=== PATIENT | male | born 1975 | race Caucasian/White ===

== ENCOUNTER 2017-07-31 06:20 | Day surgery (SDC) | payer OTHER ==
[2017-07-31] MEDS ORDERED: ceFAZolin 2 GM/50 ML 2 GM/50 ML BAG IV ONE (06:31)
[2017-07-31] MEDS ORDERED: LACTATED RINGERS 1,000 ML IV ONE ×2 (07:03→09:50)
[2017-07-31] MEDS ORDERED: LIDOCAINE 1% 50 ML MDV ONE (07:14)
[2017-07-31] MEDS ORDERED: BUPIVACAINE 0.5%-EPI 1:200000 PF 10 ML VIAL ONE (07:15)
[2017-07-31] MEDS ORDERED: BACITRACIN OINT TOP ONE ×2 (07:15)
[2017-07-31] MEDS ORDERED: BUPIVACAINE 0.5%-EPI 1:200000 PF 30 ML VIAL SUBQ ONE (08:09)
[2017-07-31] MEDS ORDERED: BACITRACIN ZINC OINT 15 GM TOP ONE (08:09)
[2017-07-31] MEDS ORDERED: LIDOCAINE 1% 50 ML MDV SUBQ ONE (08:09)
[2017-07-31] MEDS ORDERED: LIDOCAINE-MPF 2% 5 ML VIAL IM ONE (08:26)
[2017-07-31] MEDS ORDERED: fentaNYL 250 MCG/5 ML VIAL IVP ONE (08:26)
[2017-07-31] MEDS ORDERED: PROPOFOL 200 MG/20 ML VIAL IVP ONE (08:26)
[2017-07-31] MEDS ORDERED: ROCURONIUM 50 MG/5 ML VIAL IVP ONE (08:26)
[2017-07-31] MEDS ORDERED: ACETAMINOPHEN 1,000 MG/100 ML 100 ML IV ONE (09:29)
[2017-07-31] MEDS ORDERED: KETOROLAC 30 MG/ML VIAL ONE (10:24)
--- NOTE | 2017-07-31 10:51 | OPERATIVE REPORT ---
Operative Report - General Procedure Date: 07/31/17 Pre-Op Diagnosis: internal and external hemorrhoids Procedure Performed: hemorrhoidectomy Post Op Diagnosis: same - Procedure Note Primary Surgeon: viktoria Anesthesia Provider: Dr. Wheat Anesthesia Technique: General ET tube - Other Other Information/Narrative: Findings: After obtaining informed consent The patient was brought into the operating room and positioned on the operating table in the prone position taking noted pressure points. He was intubated by anesthesia prior to positioning. He was administered perioperative antibiotics he was then prepped and draped in the usual sterile fashion and a timeout was taken according to protocol.A rectal exam was performed which demonstrated a prolapsed and thrombosed external hemorrhoid in the right anterior position. He was also noted to have a large internal and external component in the left lateral position. The right anterior hemorrhoidal complex was grasped and clamped. A 3 -0 chromic suture was used to tie the base of the hemorrhoid and to run suture along the base of the proposed suture line beneath the clamp. The hemorrhoid was then excised using a 15 blade and electrocautery. There was a small amount of bleeding superficially at the skin incision which was controlled with electrocautery. Hemostasis appeared to be achieved. I then turned my attention to the left lateral hemorrhoidal complex. This was excised in a similar manner by grasping it and clamping with a large clamp was then suture ligated with a 3-0 running chromic and the hemorrhoidal complex excised with a 15 blade electrocautery. Upon further inspection of the rectum a certain degree of rectal prolapse was noted. Additionally he had residual internal hemorrhoidal tissue in the left lateral position. The hemorrhoidal banding device was used to place a single band around the internal hemorrhoid in this location. I again inspected the anal and rectal canal for bleeding and hemostasis was achieved. 40 cc of Marcaine lidocaine mixture was injected to perform an anal block. An additional 20 cc of lidocaine was placed subcutaneously. Bacitracin was placed on the incisions and the rectum was packed with Surgicel. Fluffs and mesh underwear were applied and the patient was taken to recovery room in stable condition. Specimens: None Estimated blood loss: 30 cc Consultations: None.
[2017-07-31] MEDS ORDERED: oxyCOD/ACETAMIN 5 MG/325 MG TABLET PO ONE (11:52)
[2017-07-31 12:33] VITALS: BP 123/84
--- NOTE | 2017-08-01 15:54 | HISTORY & PHYSICAL EXAMINATION ---
HPI - History of Present Illness HPI Comment/Other: Patient is here for hemorrhoidectomy for prolapsing painful hemorrhoids associated with bleeding. 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) (OKS43-U29.1) INTERNAL DERANGEMENT, RIGHT KNEE (ICD-717.9) (ELD99-L34.91) Acid Reflux Pacemaker Irregular Heartbeat Heartburn Acid Reflux Past Surgical History: Reviewed history from 10/08/2014 and no changes required: pacemaker 1999 for vasovagal syncope (based on tilt table induced cardioinhibitory response) Family History Summary: Reviewed history Last on 09/15/2016 and no changes required:06/28/2017 Father (rama.) - Has a Hx of Other Medical Problems - Entered On: 10/08/2014 General Comments - FH: Dad has lymphoma, alive age 66 in 2015 Mom healthy Risk Factors: Smoked Tobacco Use: Never smoker Smokeless Tobacco Use: Former Drug use: no Exercise: yes Problems were reviewed with the patient during this visit. Medications were reviewed with the patient during this visit. No known meds. Allergies were reviewed with the patient during this visit. Allergies: FLAGYL (Critical) Physical Exam General: normal appearance. Lungs: clear bilaterally to A & P Heart: regular rate and rhythm, S1, S2 without murmurs, rubs, gallops, or clicks Abdomen: bowel sounds positive; abdomen soft and non-tender without masses, organomegaly, or hernias noted Rectal: Rectal exam reveals a prolapsed hemorrhoid in theDigital rectal exam reveals internal hemorrhoids. Anoscopy reveals a component of both internal and external hemorrhoids circumferentially, however, the external component is Predominant. Pulses: pulses normal in all 4 extremities Extremities: no clubbing, cyanosis, edema, or deformity noted with normal full range of motion of all joints Impression & Recommendations: Problem # 1: Hemorrhoids Will proceed with hemorrhoidectomy PMH/PSH - Past Medical History Cardiovascular: positive: High cholesterol, Other Respiratory: positive: None Endocrine/Autoimmune: positive: None GI: positive: GERD, Hemorrhoids : positive: None Psych: positive: None Musculoskeletal: positive: None Derm: positive: None MRSA Hx?: No - Past Surgical History Cardiovascular: positive: Pacemaker Social & Family Hx - Social History ETOH Use: Beer Meds/Allgy - Home Medications Home Medications: Ambulatory Orders Medication Instructions Recorded Confirmed Multivitamin [Multivitamins] 1 each PO DAILY 07/31/17 07/31/17 - Allergies Allergies/Adverse Reactions: Allergies Allergy/AdvReac Type Severity Reaction Status Date / Time metronidazole [From Flagyl] Allergy Hives Verified 07/31/17 07:13
== END 2017-07-31 06:21 | disposition home or self-care (01) ==
LOC: SDS 06:20
PROVIDERS: ATTEND Surgery
PROC: 06BY0ZC Excision of Hemorrhoidal Plexus, Open Approach (ICD-10-PCS; principal; 2017-07-31 07:30)
DX: K64.5 Perianal venous thrombosis (principal); K64.8 Other hemorrhoids; E78.5 Hyperlipidemia, unspecified; Z95.0 Presence of cardiac pacemaker; Z87.891 Personal history of nicotine dependence
CPT/HCPCS: 46260; A9270; J0131; J0690; J3010; J7120

== ENCOUNTER 2017-09-13 08:02 | Outpatient (CLI) | payer OTHER ==
[2017-09-13 13:58] LABS: ALBUMIN 4.4 g/dL (3.2-5.5); ALBUMIN/GLOBULIN RATIO 1.5 (1.0-2.2); ALKALINE PHOSPHATASE 87 IU/L (42-121); ALT ALANINE AMINOTRANSFERASE 23 IU/L (10-60); AST ASPARTATE AMINOTRANSFERASE 23 IU/L (10-42); BILIRUBIN,TOTAL 0.5 mg/dL (0.2-1.0); BUN - BLOOD UREA NITROGEN 20 mg/dL (6-20); CALCIUM 8.7 mg/dL (8.5-10.3); CARBON DIOXIDE - CO2 24 mmol/L (21-32); CHLORIDE 106 mmol/L (101-111); CHOL/HDL RATIO 4.2 (<5.0); CHOLESTEROL 201 mg/dL; GFR - MDRD 81 (>89); GLUCOSE 117 mg/dL (70-100); HDL CHOLESTEROL 48 mg/dL; LDL CHOLESTEROL,CALCULATED 125 mg/dL; LDL/HDL RATIO 2.6 (<3.6); SODIUM 137 mmol/L (135-145); TOTAL PROTEIN 7.3 g/dL (6.7-8.2); VLDL CHOLESTEROL 28 mg/dL
== END 2017-09-13 08:03 | disposition home or self-care (01) ==
LOC: LAB.WCP 08:02
PROVIDERS: ATTEND Family Medicine
DX: E78.5 Hyperlipidemia, unspecified (principal); E66.9 Obesity, unspecified; R73.01 Impaired fasting glucose; R68.82 Decreased libido
CPT/HCPCS: 36415; 80053; 80061; 81599; 83721; 84402; 84403; 84443

== ENCOUNTER 2018-01-23 09:01 | Emergency (ER) | payer OTHER ==
[2018-01-23 09:24] LABS: BASOPHILS % (AUTO) 0.6 %; EOSINOPHILS # (AUTO) 0.2 10^3/uL (0.0-0.7); EOSINOPHILS % (AUTO) 3.2 %; HGB - HEMOGLOBIN 15.3 g/dL (14.0-18.0); LYMPHOCYTES # (AUTO) 1.5 10^3/uL (1.5-3.5); LYMPHOCYTES % (AUTO) 28.2 %; MEAN CORPUSCULAR HGB CONC 34.1 g/dL (32.0-36.0); MEAN PLATELET VOLUME 7.6 fL (7.4-11.4); MONOCYTES # (AUTO) 0.6 10^3/uL (0.0-1.0); MONOCYTES % (AUTO) 10.6 %; NEUTROPHILS # (AUTO) 3.1 10^3/uL (1.5-6.6); NEUTROPHILS % (AUTO) 57.4 %; PLT - PLATELET COUNT 186 10^3/uL (130-450); RED BLOOD COUNT 4.92 10^6/uL (4.70-6.10); RED CELL DISTRIBUTION WIDTH 12.7 % (12.0-15.0); WHITE BLOOD COUNT 5.4 x10^3/uL (4.8-10.8)
[2018-01-23 09:34] LABS: ALBUMIN 4.7 g/dL (3.2-5.5); ALBUMIN/GLOBULIN RATIO 1.6 (1.0-2.2); BILIRUBIN,TOTAL 0.9 mg/dL (0.2-1.0); CALCIUM 8.9 mg/dL (8.5-10.3); TOTAL PROTEIN 7.7 g/dL (6.7-8.2)
--- NOTE | 2018-01-23 10:00 | ED Physician Documentation ---
PD HPI MHE - History obtained from History obtained from: Patient - History of Present Illness Primary symptom: Other (has had left lateral chest pleuritic pain with deep breathing for a week, undulating severity. No noted trauma, nor cough. No dyspnea per se. Is not worse with exertion except with regard to breathing deeper.) Timing - onset: How many weeks ago (1) Contributing factors: Other (pain is not constant, worse some days.) Similar symptoms before: Has not had sx before Recently seen: No: Clinic (he tried to call his PMD for appt and they told him to come to the ER.) Review of Systems Constitutional: denies: Fever Nose: denies: Rhinorrhea / runny nose, Congestion Throat: denies: Sore throat Cardiac: reports: Chest pain / pressure. denies: Palpitations, Pedal edema, Calf pain Respiratory: denies: Dyspnea, Cough, Wheezing GI: denies: Abdominal Pain, Nausea, Vomiting Skin: denies: Rash, Lesions Neurologic: denies: Focal weakness, Numbness, Near syncope PD PAST MEDICAL HISTORY - Past Medical History Past Medical History: Yes Cardiovascular: High cholesterol, Other Respiratory: None Endocrine/Autoimmune: None GI: GERD, Hemorrhoids : None Psych: None Musculoskeletal: None Derm: None - Past Surgical History Cardiovascular: Pacemaker - Present Medications Home Medications: Ambulatory Orders Medication Instructions Recorded Confirmed Multivitamin [Multivitamins] 1 each PO DAILY 07/31/17 07/31/17 - Allergies Allergies/Adverse Reactions: Allergies Allergy/AdvReac Type Severity Reaction Status Date / Time metronidazole [From Flagyl] Allergy Hives Verified 01/23/18 09:11 - Social History Does the pt smoke?: No Smoking Status: Never smoker PD ED PE NORMAL - Vitals Vital signs reviewed: Yes - General General: Alert and oriented X 3, No acute distress, Well developed/nourished - HEENT HEENT: Moist mucous membranes, Pharynx benign - Neck Neck: Supple, no meningeal sign, No adenopathy - Cardiac Cardiac: RRR, No murmur - Respiratory Respiratory: Clear bilaterally, Other (no chestwall tenderness) - Abdomen Abdomen: Normal bowel sounds, Soft, Non tender, Non distended - Derm Derm: Normal color, Warm and dry, No rash - Extremities Extremities: No tenderness to palpate, Normal ROM s pain, No edema, No calf tenderness / cord - Neuro Neuro: Alert and oriented X 3, No motor deficit, Normal speech Results - Vitals Vitals: Vital Signs - 24 hr 01/23/18 01/23/18 01/23/18 09:05 09:19 10:24 Temperature 36.4 C L Heart Rate 56 L 57 L Respiratory 16 12 Rate Blood Pressure 142/94 H 136/94 H O2 Saturation 99 99 Oxygen O2 Source Room air - EKG (time done) on arrival Rhythm: NSR [place]: Normal Intervals: Normal CO QRS: Normal Ischemia: Normal ST segments. No: ST elevation c/w ischemia, ST depression - Labs Labs: Laboratory Tests 01/23/18 01/23/18 01/23/18 09:13 09:13 09:13 WBC 5.4 RBC 4.92 Hgb 15.3 Hct 44.7 MCV 91.0 MCH 31.0 MCHC 34.1 RDW 12.7 Plt Count 186 MPV 7.6 Neut # (Auto) 3.1 Lymph # (Auto) 1.5 [place] # (Auto) 0.6 Eos # (Auto) 0.2 Baso # (Auto) 0.0 Absolute Nucleated RBC 0.00 Nucleated RBC % 0.1 Sodium 137 Potassium 4.3 Chloride 102 Carbon Dioxide 27 Anion Gap 8.0 BUN 12 Creatinine 1.0 Estimated GFR (MDRD) 81 L Glucose 117 H Calcium 8.9 Total Bilirubin 0.9 AST 25 ALT 22 Alkaline Phosphatase 82 Troponin I < 0.04 Total Protein 7.7 Albumin 4.7 Globulin 3.0 Albumin/Globulin Ratio 1.6 Lipase 30 - Rads (name of study) chest xray Radiology: Prelim report reviewed, EMP read contemporaneously (normal) PD MEDICAL DECISION MAKING - ED course Complexity details: reviewed results (normal ECG, CXR, and Troponin. low risk symptoms and nonexertional symptoms for a week, so single troponin is good. ), considered differential (referred by PCP office even though sounded like pleuritic chest pain for a week. ), d/w patient - Sepsis Event Vital Signs: Vital Signs - 24 hr 01/23/18 01/23/18 01/23/18 09:05 09:19 10:24 Temperature 36.4 C L Heart Rate 56 L 57 L Respiratory 16 12 Rate Blood Pressure 142/94 H 136/94 H O2 Saturation 99 99 Oxygen O2 Source Room air Departure - Departure Disposition: 01 Home, Self Care Clinical Impression: Pleuritic chest pain Condition: Stable Record reviewed to determine appropriate education?: Yes Instructions: ED Chest Pain Pleurisy Follow-Up: Wilver Amaya MD [Primary Care Provider] - Comments: He can use some ibuprofen or naproxen 2-3 tablets twice daily for the next week. Add Tylenol if needed for pains. Your EKG blood test and x-ray appear normal so there is no obvious serious cause for the pain. Presumption would be some inflammation through the chest wall or the lung and that would be treated with the anti-inflammatories and time. Recheck if worsening pains or other symptoms along with it. Discharge Date/Time: 01/23/18 10:28
[2018-01-23] MEDS ORDERED: NAPROXEN 250 MG TABLET PO STA (10:15)
[2018-01-23] MEDS ORDERED: DEXAMETHASONE 10 MG/ML VIAL PO STA (10:15)
--- NOTE | 2018-01-23 10:15 | XRAY Report ---
Reason: chest pain Procedure Date: 01/23/2018 Accession Number: [id number] / [id number] Procedure: XR - Chest 2 View X-Ray CPT Code: 90594 FULL RESULT: EXAM: CHEST RADIOGRAPHY EXAM DATE: 01/23/2018 09:55 AM. CLINICAL HISTORY: Chest pain. COMPARISON: None. TECHNIQUE: 2 views. FINDINGS: Lungs/Pleura: Clear. No effusion or pneumothorax. Mediastinum: Heart and mediastinal contours are unremarkable. Upper lobe vessels not distended. Other: Permanent pacemaker on the left with intact leads. IMPRESSION: No acute disease. RADIA
[2018-01-23] MEDS ORDERED: CHERRY SYRUP 10 ML UDC PO ONE (10:20)
[2018-01-23 10:24] VITALS: BP 136/94
== END 2018-01-23 10:28 | disposition home or self-care (01) ==
LOC: ED 09:01
DX: R07.81 Pleurodynia (principal); E78.00 Pure hypercholesterolemia, unspecified; Z96.1 Presence of intraocular lens
CPT/HCPCS: 71046; 80053; 83690; 84484; 85025; 93005; 99283; A9270

== ENCOUNTER 2021-03-04 09:18 | Outpatient (CLI) | payer OTHER ==
[2021-03-04 12:59] LABS: ALBUMIN 4.6 g/dL (3.2-5.5); ALBUMIN/GLOBULIN RATIO 1.8 (1.0-2.2); ALKALINE PHOSPHATASE 68 IU/L (42-121); ALT ALANINE AMINOTRANSFERASE 31 IU/L (10-60); AST ASPARTATE AMINOTRANSFERASE 25 IU/L (10-42); BILIRUBIN,TOTAL 0.9 mg/dL (0.2-1.0); BUN - BLOOD UREA NITROGEN 17 mg/dL (6-20); CALCIUM 9.5 mg/dL (8.5-10.3); CARBON DIOXIDE - CO2 29 mmol/L (21-32); CHLORIDE 104 mmol/L (101-111); CHOL/HDL RATIO 3.5 (<5.0); CHOLESTEROL 207 mg/dL; CREATININE 1.1 mg/dL (0.6-1.2); GFR - MDRD 72 (>89); GLUCOSE 111 mg/dL (70-100); HDL CHOLESTEROL 59 mg/dL; LDL CHOLESTEROL,CALCULATED 124 mg/dL; LDL/HDL RATIO 2.1 (<3.6); POTASSIUM 4.5 mmol/L (3.5-5.0); SODIUM 142 mmol/L (135-145); TOTAL PROTEIN 7.2 g/dL (6.7-8.2); TRIGLYCERIDES 120 mg/dL; VLDL CHOLESTEROL 24 mg/dL
[2021-03-04 13:04] LABS: THYROID STIMULATING HORMONE 1.05 uIU/mL (0.34-5.60)
[2021-03-04 13:05] LABS: BASOPHILS % (AUTO) 0.6 %; EOSINOPHILS # (AUTO) 0.2 10^3/uL (0.0-0.7); EOSINOPHILS % (AUTO) 3.3 %; HCT - HEMATOCRIT 43.5 % (42.0-52.0); HGB - HEMOGLOBIN 14.2 g/dL (14.0-18.0); LYMPHOCYTES # (AUTO) 1.6 10^3/uL (1.5-3.5); LYMPHOCYTES % (AUTO) 31.4 %; MEAN CORPUSCULAR HEMOGLOBIN 30.3 pg (27.0-31.0); MEAN CORPUSCULAR HGB CONC 32.6 g/dL (32.0-36.0); MEAN CORPUSCULAR VOLUME 92.8 fL (80.0-94.0); MEAN PLATELET VOLUME 9.9 fL (7.4-11.4); MONOCYTES # (AUTO) 0.6 10^3/uL (0.0-1.0); MONOCYTES % (AUTO) 10.8 %; NEUTROPHILS # (AUTO) 2.7 10^3/uL (1.5-6.6); NEUTROPHILS % (AUTO) 53.5 %; PLT - PLATELET COUNT 218 10^3/uL (130-450); RED BLOOD COUNT 4.69 10^6/uL (4.70-6.10); RED CELL DISTRIBUTION WIDTH 11.8 % (12.0-15.0); WHITE BLOOD COUNT 5.1 x10^3/uL (4.8-10.8)
[2021-03-04 13:06] LABS: ESTIMATED AVERAGE GLUCOSE 126 mg/dL (70-100)
== END 2021-03-04 23:59 | disposition home or self-care (01) ==
LOC: LAB.WCP 09:18
PROVIDERS: ATTEND Nurse Practitioner
DX: R53.83 Other fatigue (principal); E78.5 Hyperlipidemia, unspecified; R73.01 Impaired fasting glucose
CPT/HCPCS: 36415; 80053; 80061; 83036; 83721; 84443; 85025

== ENCOUNTER 2024-01-04 08:56 | Outpatient (CLI) | payer OTHER ==
[2024-01-04 09:10] LABS: BASOPHILS # (AUTO) 0.1 10^3/uL (0.0-0.1); BASOPHILS % (AUTO) 0.9 %; EOSINOPHILS # (AUTO) 0.2 10^3/uL (0.0-0.7); EOSINOPHILS % (AUTO) 2.9 %; HCT - HEMATOCRIT 45.6 % (42.0-52.0); HGB - HEMOGLOBIN 14.8 g/dL (14.0-18.0); LYMPHOCYTES # (AUTO) 1.7 10^3/uL (1.5-3.5); MEAN CORPUSCULAR HEMOGLOBIN 30.3 pg (27.0-31.0); MEAN CORPUSCULAR HGB CONC 32.5 g/dL (32.0-36.0); MEAN CORPUSCULAR VOLUME 93.3 fL (80.0-94.0); MEAN PLATELET VOLUME 9.6 fL (7.4-11.4); MONOCYTES # (AUTO) 0.6 10^3/uL (0.0-1.0); MONOCYTES % (AUTO) 10.5 %; NEUTROPHILS # (AUTO) 3.1 10^3/uL (1.5-6.6); NEUTROPHILS % (AUTO) 55.5 %; PLT - PLATELET COUNT 193 10^3/uL (130-450); RED BLOOD COUNT 4.89 10^6/uL (4.70-6.10); RED CELL DISTRIBUTION WIDTH 11.9 % (12.0-15.0); WHITE BLOOD COUNT 5.5 x10^3/uL (4.8-10.8)
[2024-01-04 09:25] LABS: ALBUMIN 4.5 g/dL (3.2-5.5); ALBUMIN/GLOBULIN RATIO 1.5 (1.0-2.2); ALKALINE PHOSPHATASE 79 IU/L (42-121); ALT ALANINE AMINOTRANSFERASE 18 IU/L (10-60); AST ASPARTATE AMINOTRANSFERASE 17 IU/L (10-42); BILIRUBIN,TOTAL 0.6 mg/dL (0.2-1.0); BUN - BLOOD UREA NITROGEN 17 mg/dL (6-20); CALCIUM 9.4 mg/dL (8.5-10.3); CARBON DIOXIDE - CO2 30 mmol/L (21-32); CHLORIDE 105 mmol/L (101-111); CHOL/HDL RATIO 3.6 (<5.0); CHOLESTEROL 193 mg/dL; GFR - MDRD 79 (>89); GLUCOSE 120 mg/dL (74-104); HDL CHOLESTEROL 54 mg/dL; LDL CHOLESTEROL,CALCULATED 109 mg/dL; POTASSIUM 4.2 mmol/L (3.5-4.5); SODIUM 139 mmol/L (135-145); TOTAL PROTEIN 7.5 g/dL (6.4-8.9); TRIGLYCERIDES 150 mg/dL; VLDL CHOLESTEROL 30 mg/dL
[2024-01-04 09:40] LABS: THYROID STIMULATING HORMONE 0.79 uIU/mL (0.34-5.60)
[2024-01-04 09:58] LABS: ESTIMATED AVERAGE GLUCOSE 120 mg/dL (70-100); HEMOGLOBIN A1c% 5.8 % (4.27-6.07)
== END 2024-01-04 08:57 | disposition home or self-care (01) ==
LOC: LAB 08:56
PROVIDERS: ATTEND Nurse Practitioner
DX: E78.5 Hyperlipidemia, unspecified (principal); R53.83 Other fatigue; R73.01 Impaired fasting glucose; Z12.5 Encounter for screening for malignant neoplasm of prostate
CPT/HCPCS: 36415; 80053; 80061; 83036; 83721; 84153; 84443; 85025